=== PATIENT | male | born 1950 | race Caucasian/White ===

== ENCOUNTER 2018-11-18 16:37 | Emergency (ER) | payer BC ==
--- NOTE | 2018-11-18 16:41 | EDM.PDOC ---
ED HPI GENERAL MEDICAL PROBLEM - General Chief Complaint: Genitourinary Problem Stated Complaint: FREQUENT URINATING/BLOOD IN URINE Time Seen by Provider: 11/18/18 16:40 Source of Information: Reports: Patient History Limitations: Reports: No Limitations - History of Present Illness INITIAL COMMENTS - FREE TEXT/NARRATIVE: 68-year-old male presents to the ED with acute onset of urinary frequency with gross hematuria. He states he has had one accident today where he got the urge to void and wet his pants. His is never happened to him before. He had his left rotator cuff operated on on his left shoulder 10 days ago. States he took the pain pills for may be 7 tablets in total. He doesn't believe he was ever catheterized during surgery or afterwards. He has never had problems with his prostate or bladder in the past. He states that one time the urine did look like cranberry juice. He's not sure if he is emptying his bladder completely. He has a constant urge to void. He does not believe these had any fever or chills. Onset: Today Onset Date: 11/18/18 Onset Time: 01:00 Duration: Hour(s): Location: Reports: Other (Refill.) Quality: Reports: Burning, Other (Constant urge and feeling of need to void) Severity: Moderate Improves with: Reports: None Worsens with: Reports: None Context: Reports: Other (Acute onset of dysuria urgency and frequency with gross hematuria since about midnight last night. No associated fever or chills) . Denies: Activity, Exercise, Lifting, Sick Contact, Trauma Associated Symptoms: Reports: Other. 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 None. ) Bladder Pain Score (Numeric/FACES): 8 - Related Data Allergies Allergy/AdvReac Type Severity Reaction Status Date / Time No Known Allergies Allergy Verified 11/18/18 16:45 Home Meds: Home Meds Doxycycline [Vibramycin] 100 mg PO BID #60 cap 11/18/18 [Rx] levoFLOXacin [Levaquin] 500 mg PO DAILY #9 tab 11/18/18 [Rx] Past Medical History Genitourinary History: Reports: Other (See Below) (No previous. With his prostate. Nocturia usually 1 if any.) Musculoskeletal History: Reports: Other (See Below) (Just had surgery on his left shoulder for rotator cuff repair 10 days ago.) Social & Family History - Living Situation & Occupation Living situation: Reports: Occupation: Employed ED ROS GENERAL - Review of Systems Review Of Systems: See Below Constitutional: Reports: Fatigue. Denies: Fever, Chills, Malaise, Weakness, Decreased Appetite, Weight Loss (Mild since surgery) HEENT: Reports: No Symptoms Respiratory: Reports: Shortness of Breath. Denies: Wheezing, Pleuritic Chest Pain, Cough, Sputum Cardiovascular: Reports: Dyspnea on Exertion (Chronically). Denies: Chest Pain , Blood Pressure Problem, Claudication, Edema, Lightheadedness, Orthopnea Endocrine: Reports: Fatigue GI/Abdominal: Denies: Abdominal Pain : Reports: Dysuria, Frequency, Urgency, Other (Gross hematuria) Musculoskeletal: Reports: Other (Recent rotator cuff surgery left shoulder) Skin: Reports: No Symptoms ( still has it in a sling.) Neurological: Reports: No Symptoms Psychiatric: Reports: No Symptoms Hematologic/Lymphatic: Reports: No Symptoms Immunologic: Reports: No Symptoms ED EXAM, RENAL/ - Physical Exam Exam: See Below Exam Limited By: No Limitations General Appearance: Alert, WD/WN, Mild Distress, Other (Left arm is in a sling.) Eye Exam: Bilateral Eye: Normal Inspection Respiratory/Chest: No Respiratory Distress, Lungs Clear, Normal Breath Sounds, No Accessory Muscle Use Cardiovascular: Normal Peripheral Pulses, Regular Rate, Rhythm, No Edema, No Gallop, No Murmur, No Rub GI/Abdominal: Normal Bowel Sounds, Soft, Non-Tender, No Organomegaly, No Abnormal Bruit (Male) Exam: Circumcised Back Exam: Normal Inspection, Full Range of Motion. No: CVA Tenderness (L), CVA Tenderness (R) Extremities: Normal Inspection, Normal Range of Motion, Non-Tender, No Pedal Edema Neurological: Alert, Oriented, CN II-XII Intact, Normal Cognition, Normal Gait Psychiatric: Normal Affect, Normal Mood Skin Exam: Warm, Dry, Intact, Normal Color, No Rash Course - Vital Signs Last Recorded V/S: Last Vital Signs Temp 36.6 C 11/18/18 16:43 Pulse 103 H 11/18/18 16:43 Resp 18 11/18/18 16:43 BP 151/79 H 11/18/18 16:43 Pulse Ox 99 11/18/18 16:43 - Orders/Labs/Meds Orders: Active Orders 24 hr Category Date Time Status Bladder Scan [RC] ASDIRECTED Care 11/18/18 16:57 Active Labs: Laboratory Tests 11/18/18 Range/Units 16:50 Urine Color Yellow (Yellow) Urine Appearance Cloudy H (Clear) Urine pH 6.0 (5.0-8.0) Ur Specific [place] 1.025 (1.005-1.030) Urine Protein 3+ H (Negative) Urine Glucose (UA) Negative (Negative) Urine Ketones Trace H (Negative) Urine Occult Blood 3+ H (Negative) Urine Nitrite Negative (Negative) Urine Bilirubin Negative (Negative) Urine Urobilinogen 1.0 (0.2-1.0) Ur Leukocyte Esterase 2+ H (Negative) Urine RBC >100 H (0-5) /hpf Urine WBC >100 H (0-5) /hpf Ur Epithelial Cells 5-10 H (0-5) /hpf Amorphous Sediment Few H (NOT SEEN) /hpf Urine Bacteria Moderate H (FEW) /hpf Urine Mucus Not seen (FEW) /hpf - Radiology Interpretation Free Text/Narrative:: 68-year-old male presents to the ED with acute onset of urinary tract infection symptoms. He has dysuria urgency frequency and gross hematuria starting around midnight. He states he's had 2 accidents today where the urgency made him lose control of his bladder. He's not sure that he is emptying his bladder completely. He's never had any similar problems before. He is 10 days postop left rotator cuff surgery. States he used about 7 of the pain pills and then since then has been using anything. To his knowledge was never catheterized during the surgery etc. By history has no history problems with his prostate gland that would lend to urinary tract infection. Patient is circumcised. No associated fever or chills. Lab urinalysis and then a postvoid bladder scan to be done - Re-Assessments/Exams Free Text/Narrative Re-Assessment/Exam: 11/18/18 17:08 post void bladder scan is only 11 mL. Therefore he is emptying appropriately. 11/18/18 17:40 Urinalysis is cloudy with 3+ proteinuria tracing ketones 3+ occult blood 2+ leukocyte esterase greater than 100 rbc's by Debora greater than 100 WBCs per high-power field with 5-10 epithelial cells and moderate bacteria . Patient will be treated with Levaquin 500 mg by mouth and doxycycline 200 mg by mouth with Pyridium 95 mg by mouth. On reexamination the patient states he feels a little nauseated. He does feel little bit warmer to palpation at this time I wonder if he is not developing upper urinary tract symptoms as well. I will give him Zofran 4 mg sublingual at this time. I will also send one tablet home with him. The drugstore is closed. Patient will be placed on Levaquin 500 mg once daily for another 9 days and doxycycline 100 mg twice a day for another 30 days to clean up infection is most likely it is coming from his prostate gland. Departure - Departure Time of Disposition: 17:47 Disposition: Home, Self-Care 01 Condition: Fair Clinical Impression: UTI, Urinary tract infectious disease, Prostatitis - Discharge Information *PRESCRIPTION DRUG MONITORING PROGRAM REVIEWED*: Not Applicable *COPY OF PRESCRIPTION DRUG MONITORING REPORT IN PATIENT WALLACE: Not Applicable Prescriptions: Doxycycline [Vibramycin] 100 mg PO BID #60 cap levoFLOXacin [Levaquin] 500 mg PO DAILY #9 tab Referrals: Fuad Moreno MD [Primary Care Provider] - Forms: ED Department Discharge Additional Instructions: Evaluation the emergency room today in regards to development of urinary tract infection. A shaded urgency frequency and noted blood in urine since the wee hours of this morning. The cause of this is unclear and although in males it almost always means you have a prostate gland infection which then spreads to the bladder and to the upper urinary tract system. You're feeling a bit queasy or nauseated as well as I think developing a low-grade fever in the emergency department. He will therefore given Zofran 4 mg under the tongue for nausea relief which will last about 6 hours. 1 tablet will be sent home with you that she could use at anytime after this 6 hours for recurrent nausea vomiting. Antibiotics were started in the ED Levaquin 500 mg and doxycycline 200 mg by mouth. The Levaquin will have to be continued 500 mg once daily for another 9 days starting at suppertime tomorrow night. In the doxycycline should be taken twice daily for the next month starting tomorrow morning. The infection is most likely in your prostate gland and if not treated long enough the infection tends to reoccur quite promptly and is usually more difficult to treat. Expect marked improvement in symptoms in the next 12-24 hours. Use Motrin 600 mg every 6 hours for pain relief and/or fever relief if needed. Return to the ED if you develop nausea vomiting or severe chills/shakes . - My Orders Last 24 Hours: My Active Orders 11/18/18 16:57 Bladder Scan [RC] ASDIRECTED - Assessment/Plan Last 24 Hours: My Active Orders 11/18/18 16:57 Bladder Scan [RC] ASDIRECTED
[2018-11-18] MEDS ORDERED: Levofloxacin 250 MG Tab PO ONE (17:41)
[2018-11-18] MEDS ORDERED: Doxycycline 100 MG Cap PO ONE (17:42)
[2018-11-18] MEDS ORDERED: Ondansetron 4 MG Tab.DIS PO ONE (17:47)
[2018-11-18] MEDS ORDERED: Ondansetron 4 MG Tab.DIS ONE (17:49)
[2018-11-18] MEDS ORDERED: Phenazopyridine 95 MG Tab PO SCH (19:00)
== END 2018-11-18 18:00 | disposition home or self-care (01) ==
LOC: JD.ED 16:37
DX: N39.0 Urinary tract infection, site not specified (principal); N41.9 Inflammatory disease of prostate, unspecified
CPT/HCPCS: 51798; 81001; 87086; 87088; 87186; 99283; A9270

== ENCOUNTER 2019-06-20 07:12 | Day surgery (SDC) | payer BC, MEDICARE ==
[~2019-06-20 07:12] MED LIST: EPINEPHrine 1 MG/ML 30 ML MDV SCH; Lactated Ringers 1,000 ML IV SCH; Lidocaine 1%/Sod Bicarbonate in NS 8.4% 1 ML Syringe IDERM PRN; Sodium Chloride 0.9% 10 ML Syringe FLUSH PRN
[2019-06-20] MEDS ORDERED: Rocuronium 50 MG/5 ML Vial ONE (07:19)
[2019-06-20] MEDS ORDERED: Lidocaine 1% 4 ML ONE (07:19)
[2019-06-20] MEDS ORDERED: fentaNYL 100 MCG/2 ML SDV ONE ×2 (07:20→08:02)
[2019-06-20] MEDS ORDERED: Propofol 200 MG/20 ML SDV ONE (07:20)
[2019-06-20] MEDS ORDERED: Midazolam 1 MG/ML 2 ML SDV ONE (07:20)
[2019-06-20] MEDS ORDERED: Ropivacaine 0.5% 5 MG/ML 30 ML SDV ONE (07:30)
[2019-06-20] MEDS ORDERED: EPINEPHrine 1 MG/1 ML Amp ONE (07:30)
[2019-06-20] MEDS ORDERED: Dexamethasone 4 MG/ML 5 ML MDV ONE (07:32)
[2019-06-20] MEDS ORDERED: ceFAZolin 1 GM Vial ONE (08:19)
[2019-06-20] MEDS ORDERED: Ondansetron 4 MG/2 ML SDV ONE (08:26)
--- NOTE | 2019-06-20 09:00 | PCM.PREANE ---
Preanesthetic Assessment - Procedure Proposed Procedure: Right shoulder arthroscopy - Anesthesia/Transfusion/Family Hx Anesthesia History: No Prior Anesthesia Family History of Anesthesia Reaction: No Transfusion History: Unknown - Review of Systems General: No Symptoms Pulmonary: No Symptoms Cardiovascular: No Symptoms, Other (hypertension) Gastrointestinal: No Symptoms Neurological: No Symptoms Other: Reports: Thyroid Problems - Physical Assessment NPO Status Date: 06/19/19 NPO Status Time: 12:00 Vital Signs: Last Vital Signs Temp 36.8 C 06/20/19 07:15 Pulse 87 06/20/19 07:50 Resp 18 06/20/19 07:50 BP 158/100 H 06/20/19 07:50 Pulse Ox 96 06/20/19 07:50 Height: 6 ft Weight: 126.552 kg ASA Class: 2 Mental Status: Alert & Oriented x3 Dentition: Reports: Dentures Thyro-Mental Finger Breadths: 3 (large neck) Mouth Opening Finger Breadths: 3 ROM/Head Extension: Full Lungs: Clear to Auscultation, Normal Respiratory Effort Cardiovascular: Regular Rate, Regular Rhythm - Lab Values: Laboratory Last Values MRSA (PCR) Negative 06/19/19 10:29 - Allergies Allergies/Adverse Reactions: Allergies Allergy/AdvReac Type Severity Reaction Status Date / Time No Known Allergies Allergy Verified 06/19/19 13:06 - Anesthesia Plan Pre-Op Medication Ordered: None - Acknowledgements Anesthesia Type Planned: General Anesthesia (with right ISB) Pt an Appropriate Candidate for the Planned Anesthesia: Yes Alternatives and Risks of Anesthesia Discussed w Pt/Guardian: Yes Pt/Guardian Understands and Agrees with Anesthesia Plan: Yes PreAnesthesia Questionnaire HEENT History: Reports: Impaired Vision Other HEENT History: Reading glasses Cardiovascular History: Reports: High Cholesterol, Hypertension Respiratory History: Reports: None, Other (See Below) (denies GENNA but has mild increased work of breathing) Gastrointestinal History: Reports: Colon Polyp Genitourinary History: Reports: None Musculoskeletal History: Reports: Other (See Below) (morbid obesity) Neurological History: Reports: None Psychiatric History: Reports: None Endocrine/Metabolic History: Reports: Hypothyroidism, Obesity/BMI 30+ Hematologic History: Reports: Other (See Below) Other Hematologic History: polycythemia Immunologic History: Reports: None Oncologic (Cancer) History: Reports: None Dermatologic History: Reports: None - Past Surgical History Head Surgeries/Procedures: Reports: None HEENT Surgical History: Reports: Tonsillectomy Cardiovascular Surgical History: Reports: None Respiratory Surgical History: Reports: None GI Surgical History: Reports: Appendectomy, Colonoscopy Endocrine Surgical History: Reports: None Neurological Surgical History: Reports: None Musculoskeletal Surgical History: Reports: Shoulder Surgery, Other (See Below) Other Musculoskeletal Surgeries/Procedures:: bilateral meniscus repairs, excision behind left knee Oncologic Surgical History: Reports: None Dermatological Surgical History: Reports: None - SUBSTANCE USE Smoking Status *Q: Former Smoker Recreational Drug Use History: No - HOME MEDS Home Medications: Home Meds Levothyroxine 175 mcg PO DAILY 06/19/19 [History] amLODIPine Besylate/Benazepril [Amlodipine-Benazepril 10-20 MG] 1 tab PO DAILY 06/19/19 [History] Acetaminophen/HYDROcodone [[place] 325-5 MG] 1 - 2 tab PO Q6H #10 tablet 06/20/19 [Rx] Cyclobenzaprine [Flexeril] 10 mg PO BID PRN #20 tab 06/20/19 [Rx] - CURRENT (IN HOUSE) MEDS Current Meds: Current Medications Epinephrine HCl (Adrenalin) 3 mg .XX ONETIME LYNN Stop: 06/20/19 16:00 Lactated Ringer's (Ringers, Lactated) 1,000 mls @ 125 mls/hr IV ASDIRECTED LYNN Stop: 06/20/19 23:00 Last Admin: 06/20/19 07:35 Dose: 125 mls/hr Lidocaine/Sodium Bicarbonate (Buffered Lidocaine 1% In Ns 8.4%) 0.25 ml IDERM ONETIME PRN PRN Reason: Prior to IV Start Stop: 06/20/19 18:00 Last Admin: 06/20/19 07:35 Dose: 0.25 ml Sodium Chloride (Saline Flush) 10 ml FLUSH ASDIRECTED PRN PRN Reason: Keep Vein Open Stop: 06/20/19 18:00 Discontinued Medications Cefazolin Sodium (Ancef) Confirm Administered Dose 3 gm .ROUTE .STK-MED ONE Stop: 06/20/19 08:20 Dexamethasone (Dexamethasone) Confirm Administered Dose 20 mg .ROUTE .STK-MED ONE Stop: 06/20/19 07:33 Epinephrine HCl (Adrenalin) Confirm Administered Dose 1 mg .ROUTE .STK-MED ONE Stop: 06/20/19 07:31 Fentanyl (Sublimaze) Confirm Administered Dose 100 mcg .ROUTE .STK-MED ONE Stop: 06/20/19 07:21 Fentanyl (Sublimaze) Confirm Administered Dose 100 mcg .ROUTE .STK-MED ONE Stop: 06/20/19 08:03 Lidocaine HCl (Xylocaine-Mpf 1%) Confirm Administered Dose 4 mls @ as directed .ROUTE .STK-MED ONE Stop: 06/20/19 07:20 Midazolam HCl (Versed 1 Mg/Ml) Confirm Administered Dose 2 mg .ROUTE .STK-MED ONE Stop: 06/20/19 07:21 Ondansetron HCl (Zofran) Confirm Administered Dose 4 mg .ROUTE .STK-MED ONE Stop: 06/20/19 08:27 Propofol (Diprivan 20 Ml) Confirm Administered Dose 400 mg .ROUTE .STK-MED ONE Stop: 06/20/19 07:21 Rocuronium Milaca (Zemuron) Confirm Administered Dose 50 mg .ROUTE .STK-MED ONE Stop: 06/20/19 07:20 Ropivacaine (Naropin 0.5%) Confirm Administered Dose 30 ml .ROUTE .STK-MED ONE Stop: 06/20/19 07:31
[2019-06-20] MEDS ORDERED: Promethazine 25 MG/ML SDV IM ONE (09:01)
[2019-06-20] MEDS ORDERED: Morphine 4 MG/ML Syringe IVPUSH PRN (09:01)
--- NOTE | 2019-06-20 10:04 | PCM.POSTAN ---
POST ANESTHESIA ASSESSMENT - MENTAL STATUS Mental Status: Alert, Oriented - VITAL SIGNS Vital Signs: Last Vital Signs Temp 36.8 C 06/20/19 07:15 Pulse 87 06/20/19 07:50 Resp 18 06/20/19 07:50 BP 158/100 H 06/20/19 07:50 Pulse Ox 96 06/20/19 07:50 - RESPIRATORY Respiratory Status: Respiratory Rate WNL, Airway Patent, Supplemental Oxygen - CARDIOVASCULAR CV Status: Pulse Rate WNL, Blood Pressure Stable - GASTROINTESTINAL GI Status: No Symptoms - PAIN Pain Score: 0 - POST OP HYDRATION Hydration Status: Adequate & Stable (Patient needs increased FiO2 and IS to improve SpO2. RN aware.)
--- NOTE | 2019-06-20 10:32 | PCM48HPAN ---
Post Anesthesia Note - EVALUATION WITHIN 48HRS OF ANESTHETIC Vital Signs in Normal Range: Yes Patient Participated in Evaluation: Yes Respiratory Function Stable: Yes Airway Patent: Yes Cardiovascular Function Stable: Yes Hydration Status Stable: Yes Pain Control Satisfactory: Yes Nausea and Vomiting Control Satisfactory: Yes Mental Status Recovered: Yes Vital Signs: Last Vital Signs Temp 36.6 C 06/20/19 09:50 Pulse 87 06/20/19 07:50 Resp 11 L 06/20/19 10:15 BP 149/88 H 06/20/19 10:15 Pulse Ox 94 L 06/20/19 10:28 - COMMENTS/OBSERVATIONS Free Text/Narrative:: patient instructed on use of IS and encouraged to walke and change position frequently today, to not sleep all day
--- NOTE | 2019-06-20 10:35 | PCM.SN ---
- Free Text/Narrative Note: Informed consent. Patient positioned slightly left lateral. 2L NCO2, SpO2, (3) EKG leads. Timeout with RN. Mild sedation with 1 mg IV versed and 25 mcg IV fentanyl to good effect. 2" Stimuplex echogenic needle in-plane with US guidance. Image captured. Negative aspiration. Negative heme. Negative dysthesia. Intermittent RN injection under normal pressure of 27 mL admixture ( 25 mL 0.5% ropivicaine, 8 mg dexamethasone, 150 mcg epinephrine). Routine ISB. No complications. Deep motor block prior to departure to OR.
--- NOTE | 2019-06-24 08:25 | PCM.OPNOTE ---
- General Post-Op/Procedure Note Date of Surgery/Procedure: 06/20/19 Operative Procedure(s): right shoulder video arthroscopy with rotator cuff repair, subacromial decompression, cyst decompression, biceps tenotomy, and extensive debridement Pre Op Diagnosis: right shoulder rotator cuff tear with impingement and suprascapular cyst Post-Op Diagnosis: same with biceps tendinitis Anesthesia Technique: General ET Tube, Regional Block Primary Surgeon: Kd Ruiz Anesthesia Provider: Pal Lara Acetylene Burner: Yana Vaughn EBL in mLs: 5 Complications: None Condition: Good
--- NOTE | 2019-06-24 10:47 | OR ---
DATE OF OPERATION: 06/20/2019 SURGEON: Kd Ruiz MD OPERATION PERFORMED: Right shoulder video arthroscopy with rotator cuff repair, subacromial decompression, cyst decompression, biceps tenotomy, and extensive debridement. PREOPERATIVE DIAGNOSIS: Right shoulder rotator cuff tear with impingement and suprascapular cyst. POSTOPERATIVE DIAGNOSIS: Right shoulder rotator cuff tear with impingement and suprascapular cyst with biceps tendinitis. ANESTHESIA: General endotracheal intubation with regional interscalene block. ANESTHESIA PROVIDER: Pal Lara. STULL INSTALLER: Yana Vaughn PA-C. ESTIMATED BLOOD LOSS: Less than 5 mL. COMPLICATIONS: None. CONDITION: Stable. DESCRIPTION OF PROCEDURE: The patient was identified in the preop holding area. Proper site was marked and identified by the surgeon. The patient was taken back to the operating theater where after adequate anesthesia, the patient was placed in the lazy left lateral decubitus position. A wedge was placed posteriorly. The patient was secured to the table. Right upper extremity was then sterilely prepped and draped in the usual sterile fashion. OR time-out was performed. The patient received 2 g IV Ancef. 12 pounds of traction was applied to the right upper extremity. Standard posterior incision was made. Scope trocar was introduced to the glenohumeral joint and a spinal needle was used for creation of inside- out portal anteriorly. At this time, the patient's biceps tendon was noted to be significantly frayed as well as significant tendonitis and biceps tenotomy was performed. At this point, an extensive debridement was done of any synovitis and the suprascapular cyst was decompressed, then visualized. Once it was completed, the patient was noted to have significant fraying of the supraspinatus, but no full-thickness tear on the articular side. Attention was turned to the subacromial space. Scope trocar was introduced. Lateral portal was created with the use of a spinal needle. The patient was noted to have significant bursitis and extensive debridement was done of the bursitis. He also was noted to have fraying of the CA ligament. He had a near complete full- thickness tear noted at the attachment of the supraspinatus on the bursal side. Completion of the tear was then done and good bony bleeding bed was created. One 4.75 mm Arthrex SwiveLock anchor was placed medially with 2 limbs of FiberWire and a fiber tape. These were then passed anteriorly and posteriorly. The limbs of FiberWire were then tied and 1 strand was cut from each and then another 4.75 mm Arthrex SwiveLock anchor was placed out laterally for double row repair. Tension was applied across the 4 remaining sutures, and the FiberTape and then the anchor was placed. It was found to have adequate watertight repair of the previous noted supraspinatus tear. The patient then had a subacromial decompression completed of his type 2/3 acromion back to a smooth border with the posterior portion. Excess saline was drained from the shoulder. 3-0 nylon suture was used for closure of the skin. The patient had tolerated the procedure well and sent to PACU in stable condition. NAV /[id number]
== END 2019-06-20 11:44 | disposition home or self-care (01) ==
LOC: JD.SDS 07:12
PROVIDERS: ATTEND Orthopaedic Surgery
DX: M75.111 Incomplete rotator cuff tear or rupture of right shoulder, not specified as traumatic (principal); M75.41 Impingement syndrome of right shoulder; M75.21 Bicipital tendinitis, right shoulder; M75.51 Bursitis of right shoulder; M85.611 Other cyst of bone, right shoulder; I10 Essential (primary) hypertension; E03.9 Hypothyroidism, unspecified; E78.00 Pure hypercholesterolemia, unspecified; E66.01 Morbid (severe) obesity due to excess calories; D75.1 Secondary polycythemia; Z68.41 Body mass index [BMI] 40.0-44.9, adult; Z87.891 Personal history of nicotine dependence; Z79.1 Long term (current) use of non-steroidal anti-inflammatories (NSAID); Z79.899 Other long term (current) drug therapy
CPT/HCPCS: 29823; 29826; 29827; 87641; J0171; J0690; J1100; J2001; J2250; J2405; J2704; J2795; J3010; J7120; 01630; 64415

== ENCOUNTER 2022-03-07 07:54 | Day surgery (SDC) | payer MEDICARE, OTHER ==
[~2022-03-07 07:54] MED LIST changes: +Acetaminophen 325 MG Tab PO SCH; -EPINEPHrine 1 MG/ML 30 ML MDV SCH; +Lidocaine 1% 4 ML ONE; +Midazolam 1 MG/ML 2 ML SDV ONE; +Morphine 8 MG, EPINEPHrine 0.3 MG, Cefuroxime 750 MG, Ketorolac 30 MG, Sodium Chloride ... PRN; +Pregabalin 25 MG Cap PO SCH; +Propofol 200 MG/20 ML SDV ONE; +Sodium Chloride 0.9% 10 ML Syringe FLUSH SCH; +Vancomycin 1 GM SDV ONE; +ceFAZolin 1 GM Vial ONE; +fentaNYL 100 MCG/2 ML SDV ONE; +oxyCODONE ER 10 MG TAB.ER PO SCH
[2022-03-07] MEDS ORDERED: Triamcinolone Acetonide 40 MG/ML 1 ML SDV ONE (08:27)
[2022-03-07] MEDS ORDERED: Bupivacaine 0.25% 10 ML SDV ONE (08:28)
[2022-03-07] MEDS ORDERED: ePHEDrine 50 MG/ML SDV ONE (09:24)
[2022-03-07] MEDS ORDERED: diphenhydrAMINE 50 MG/ML SDV IVPUSH PRN (09:31)
[2022-03-07] MEDS ORDERED: Ondansetron 4 MG/2 ML SDV IVPUSH PRN (09:31)
[2022-03-07] MEDS ORDERED: fentaNYL 100 MCG/2 ML SDV IVPUSH PRN (09:31)
[2022-03-07] MEDS ORDERED: Lactated Ringers 1,000 ML ONE (09:40)
[2022-03-07] MEDS ORDERED: Propofol 200 MG/20 ML SDV ONE (10:01)
[2022-03-07] MEDS ORDERED: oxyCODONE 5 MG Tab PO ONE ×2 (10:57→14:00)
[2022-03-07] MEDS ORDERED: EPINEPHrine 1 MG/ML SDV ONE (11:29)
[2022-03-07] MEDS ORDERED: Ropivacaine 0.5% 5 MG/ML 30 ML SDV ONE (11:29)
== END 2022-03-07 14:20 | disposition home or self-care (01) ==
LOC: JD.SDS 07:54
PROVIDERS: ATTEND Orthopaedic Surgery
DX: M17.0 Bilateral primary osteoarthritis of knee (principal); I10 Essential (primary) hypertension; E03.9 Hypothyroidism, unspecified; D75.1 Secondary polycythemia; E66.01 Morbid (severe) obesity due to excess calories; G47.33 Obstructive sleep apnea (adult) (pediatric); Z79.899 Other long term (current) drug therapy; Z79.890 Hormone replacement therapy; Z90.49 Acquired absence of other specified parts of digestive tract; Z98.890 Other specified postprocedural states; Z87.891 Personal history of nicotine dependence; Z68.35 Body mass index [BMI] 35.0-35.9, adult
CPT/HCPCS: 20610; 27447; 73560; 97110; 97116; 97161; A9270; C1713; C1776; J0171; J0690; J0697; J1885; J2250; J2270; J2704; J2795; J3010; J3301; J3370; J3490; J7120; 01402; 64447; 76942

== ENCOUNTER 2023-01-02 08:30 | Day surgery (SDC) | payer MEDICARE, OTHER ==
[~2023-01-02 08:30] MED LIST changes: -Lidocaine 1% 4 ML ONE; -Midazolam 1 MG/ML 2 ML SDV ONE; -Propofol 200 MG/20 ML SDV ONE; -Vancomycin 1 GM SDV ONE; -ceFAZolin 1 GM Vial ONE; -fentaNYL 100 MCG/2 ML SDV ONE
[2023-01-02] MEDS ORDERED: Vancomycin 1 GM SDV ONE ×2 (08:51→09:11)
[2023-01-02] MEDS ORDERED: Tranexamic Acid 1,000 MG/10 ML Vial ONE ×2 (08:51→09:12)
[2023-01-02] MEDS ORDERED: fentaNYL 100 MCG/2 ML SDV IVPUSH PRN (09:04)
[2023-01-02] MEDS ORDERED: HYDROmorphone 0.5 MG/0.5 ML Syringe IVPUSH PRN (09:04)
[2023-01-02] MEDS ORDERED: Ondansetron 4 MG/2 ML SDV IVPUSH PRN (09:04)
[2023-01-02] MEDS ORDERED: Midazolam 1 MG/ML 2 ML SDV ONE ×2 (09:11→11:13)
[2023-01-02] MEDS ORDERED: fentaNYL 100 MCG/2 ML SDV ONE (09:11)
[2023-01-02] MEDS ORDERED: Propofol 200 MG/20 ML SDV ONE ×3 (09:12→11:02)
[2023-01-02] MEDS ORDERED: Lidocaine 1% 2 ML ONE (09:14)
[2023-01-02] MEDS ORDERED: Ropivacaine 0.5% 5 MG/ML 30 ML SDV ONE (09:24)
[2023-01-02] MEDS ORDERED: ceFAZolin 2 GM Vial ONE ×2 (09:29→09:40)
[2023-01-02] MEDS ORDERED: Phenylephrine HCl In 0.9% NaCl 1 MG/10 ML Vial ONE (10:33)
[2023-01-02] MEDS ORDERED: ePHEDrine 50 MG/ML SDV ONE (10:33)
[2023-01-02] MEDS ORDERED: EPINEPHrine 1 MG/ML SDV ONE (10:37)
[2023-01-02] MEDS ORDERED: oxyCODONE 5 MG Tab PO PRN (12:45)
== END 2023-01-02 15:32 | disposition home or self-care (01) ==
LOC: JD.SDS 08:30
PROVIDERS: ATTEND Orthopaedic Surgery
DX: M17.11 Unilateral primary osteoarthritis, right knee (principal); I10 Essential (primary) hypertension; E03.9 Hypothyroidism, unspecified; E78.5 Hyperlipidemia, unspecified; G47.33 Obstructive sleep apnea (adult) (pediatric); E66.01 Morbid (severe) obesity due to excess calories; M19.90 Unspecified osteoarthritis, unspecified site; Z98.890 Other specified postprocedural states; Z90.49 Acquired absence of other specified parts of digestive tract; Z79.899 Other long term (current) drug therapy; Z79.890 Hormone replacement therapy; Z87.891 Personal history of nicotine dependence; Z68.38 Body mass index [BMI] 38.0-38.9, adult
CPT/HCPCS: 0055T; 27447; 73560; 97116; 97161; A9270; C1713; C1776; J0171; J0690; J0697; J1885; J2250; J2270; J2704; J2795; J3010; J3370; J7120; 01402; 64447; J3490